=== PATIENT | male | born 1985 ===

== ENCOUNTER → 2021-01-29 | Outpatient (CLI) | payer OTHER | LOC: LAB SHORT 18:57 → LAB 18:57 | DX: Z48.817 Encounter for surgical aftercare following surgery on the skin and subcutaneous tissue (principal); L08.9 Local infection of the skin and subcutaneous tissue, unspecified; B35.2 Tinea manuum; L57.8 Other skin changes due to chronic exposure to nonionizing radiation; L81.4 Other melanin hyperpigmentation; L85.3 Xerosis cutis; Z71.89 Other specified counseling | CPT/HCPCS: 87070; 87205 ==